=== PATIENT | female | born 1960 | race Caucasian/White ===

== ENCOUNTER 2020-05-19 16:09 | Emergency (ER) | payer OTHER, BC ==
[~2020-05-19] VITALS: Ht 162.6 cm; Wt 126.1 kg
[2020-05-19] MEDS ORDERED: MYRBETRIQ50 MG PO (16:39)
[2020-05-19] MEDS ORDERED: IRON325 M1 PO (16:39)
[2020-05-19] MEDS ORDERED: SERTRALINE HCL100 MG PO (16:39)
[2020-05-19] MEDS ORDERED: VITAMIN B-121000 MC2 SUBLING (16:39)
[2020-05-19] MEDS ORDERED: SINGULAIR 10 MG10 M1 PO (16:40)
[2020-05-19] MEDS ORDERED: LITE COAT ASPI325 MG PO (16:40)
[2020-05-19] MEDS ORDERED: LASIX 20 MG TAB20 MG PO (16:40)
[2020-05-19] MEDS ORDERED: KLOR-CON 1010 MEQ PO (16:40)
[2020-05-19] MEDS ORDERED: CALCIUM CARBON500 MG PO (16:41)
[2020-05-19] MEDS ORDERED: TOPAMAX100 MG PO (16:41)
[2020-05-19 17:29] LABS: HEMATOCRIT 37.7 % (37.0-47.0); HEMOGLOBIN 12.4 gm/dL (12.0-15.0); MCH 28.7 pg (26.0-34.0); MCHC 32.9 g/dL (28.0-37.0); MCV 87.2 fL (80.0-100.0); RBC 4.33 mil/uL (4.20-5.00)
[2020-05-19 17:37] LABS: ANION GAP 10 mmol/L (7-16); BUN 12 mg/dL (7-18); CALCIUM 8.7 mg/dL (8.5-10.1); CHLORIDE 105 mmol/L (98-107); CO2 24 mmol/L (21-32); CREATININE 0.7 mg/dL (0.6-1.0); GLUCOSE 92 mg/dL (74-106); POTASSIUM 4.1 mmol/L (3.5-5.1); SODIUM 139 mmol/L (136-145)
[2020-05-19 17:43] LABS: ALBUMIN 2.7 g/dL (3.4-5.0); DIRECT BILIRUBIN < 0.1 mg/dL (<0.1-0.2); LIPASE 69 U/L (73-393); SGOT 26 U/L (15-37); SGPT 21 U/L (30-65); TOTAL BILIRUBIN 0.4 mg/dL (0.2-1.0); TOTAL PROTEIN 7.9 g/dL (6.4-8.2)
[2020-05-19 17:48] LABS: ANISOCYTOSIS 1+; LARGE PLATELETS RARE; PLATELET COUNT 178 thou/uL (150-400)
[2020-05-19 18:00] LABS: URINE BLOOD NEGATIVE (Negative); URINE COLOR YELLOW; URINE GLUCOSE-RANDOM* NEGATIVE (Negative); URINE KETONES TRACE (Negative); URINE LEUKOCYTES-REFLEX TRACE (Negative); URINE NITRITE-REFLEX NEGATIVE (Negative); URINE PROTEIN (DIPSTICK) NEGATIVE (Negative); URINE SPECIFIC GRAVITY 1.025 (1.005-1.035)
[2020-05-19 18:03] LABS: ABSOLUTE NEUTROPHILS 4.4 thou/uL (1.4-8.2)
[2020-05-19 18:05] LABS: ICTOTEST (BILI CONFIRMATORY) Negative (Negative); URINE BILIRUBIN NEGATIVE (Negative); URINE CLARITY SL HAZY
[2020-05-19] MEDS ORDERED: ZOFRAN ODT4 MG PO (19:01)
[2020-05-19] MEDS ORDERED: PERCOCET 5-3251 EACH PO ×2 (19:01→19:37)
[2020-05-19 19:47] VITALS: BP 127/64
== END 2020-05-19 19:48 | disposition home or self-care (01) ==
LOC: ER 16:09
PROVIDERS: Nurse Practitioner
DX: S82.831A Other fracture of upper and lower end of right fibula, initial encounter for closed fracture (principal); R11.2 Nausea with vomiting, unspecified; R19.7 Diarrhea, unspecified; R53.83 Other fatigue; Z98.84 Bariatric surgery status; R10.9 Unspecified abdominal pain; R11.10 Vomiting, unspecified; M79.604 Pain in right leg; J44.9 Chronic obstructive pulmonary disease, unspecified; E66.01 Morbid (severe) obesity due to excess calories; F17.210 Nicotine dependence, cigarettes, uncomplicated; Z86.73 Personal history of transient ischemic attack (TIA), and cerebral infarction without residual deficits; Z79.899 Other long term (current) drug therapy; Z79.82 Long term (current) use of aspirin; Z88.1 Allergy status to other antibiotic agents; Z88.8 Allergy status to other drugs, medicaments and biological substances; Z88.2 Allergy status to sulfonamides; Z68.42 Body mass index [BMI] 45.0-49.9, adult; W19.XXXA Unspecified fall, initial encounter; Y93.89 Activity, other specified; Y92.89 Other specified places as the place of occurrence of the external cause; Y99.8 Other external cause status

== ENCOUNTER → 2020-10-20 | Outpatient (CLI) | payer OTHER, BC ==
[~2020-10-20] MED LIST: CALCIUM CARBON500 MG PO; IRON325 M1 PO; KLOR-CON 1010 MEQ PO; LASIX 20 MG TAB20 MG PO; LITE COAT ASPI325 MG PO; MYRBETRIQ50 MG PO; PERCOCET 5-3251 EACH PO; SERTRALINE HCL100 MG PO; SINGULAIR 10 MG10 M1 PO; TOPAMAX100 MG PO; VITAMIN B-121000 MC2 SUBLING; ZOFRAN ODT4 MG PO
== END ==
LOC: LAB 13:47
PROVIDERS: ATTEND Anesthesiology
DX: Z01.812 Encounter for preprocedural laboratory examination (principal); Z20.822 Contact with and (suspected) exposure to COVID-19